=== PATIENT | female | born 1945 | race Two or more races ===

== ENCOUNTER 2018-07-03 07:00 | Day surgery (SDC) | payer OTHER ==
[~2018-07-03] VITALS: Ht 139.7 cm; Wt 49.9 kg
[~2018-07-03 07:00] MED LIST: FOLIC ACID1 MG PO; FOSAMAX70 MG PO; HYDROCHLOROTHIA25 MG PO; ZETIA10 MG PO
[2018-07-04] MEDS ORDERED: INTESTINEX680 M1 PO (14:09)
[2018-07-04] MEDS ORDERED: ULTRACET PO (14:09)
== END 2018-07-04 08:00 | disposition home or self-care (01) ==
LOC: CIR.AMB 07:00 → SURG 07:00 → O/R 07:00 → EDSTATUS 14:45 → SURG 14:45 → SURH 15:15 → O/R 15:15 → CIR.AMB 07-04 08:00 → SURH 07-04 16:59 → O/R 07-04 16:59
DX: C20 Malignant neoplasm of rectum (principal); I13.10 Hypertensive heart and chronic kidney disease without heart failure, with stage 1 through stage 4 chronic kidney disease, or unspecified chronic kidney disease; N18.2 Chronic kidney disease, stage 2 (mild); D50.0 Iron deficiency anemia secondary to blood loss (chronic)